=== PATIENT | female | born 2000 | race Caucasian/White ===

== ENCOUNTER 2018-01-04 11:00 | Emergency (ER) | payer SELFPAY ==
[2018-01-04] MEDS ORDERED: Cyclobenzaprine TAB* 10 MG PO ONE (11:02)
[2018-01-04] MEDS ORDERED: Ibuprofen TAB* 600 MG PO ONE (11:02)
[2018-01-04 11:40] VITALS: BP 132/82
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
== END 2018-01-04 11:39 | disposition home or self-care (01) ==
LOC: ED 11:00
DX: S19.9XXA Unspecified injury of neck, initial encounter (principal); S39.92XA Unspecified injury of lower back, initial encounter; S00.83XA Contusion of other part of head, initial encounter; S00.81XA Abrasion of other part of head, initial encounter; V48.6XXA Car passenger injured in noncollision transport accident in traffic accident, initial encounter; Y93.89 Activity, other specified; Y92.410 Unspecified street and highway as the place of occurrence of the external cause
CPT/HCPCS: 99282; A9270-GY

== ENCOUNTER 2018-01-27 14:39 | Emergency (ER) | payer OTHER ==
[2018-01-27 15:00] VITALS: BP 109/71
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
== END 2018-01-27 15:51 | disposition home or self-care (01) ==
LOC: UCEAST 14:39
DX: S93.402A Sprain of unspecified ligament of left ankle, initial encounter (principal); V49.3XXA Car occupant (driver) (passenger) injured in unspecified nontraffic accident, initial encounter; Y93.89 Activity, other specified; Y92.9 Unspecified place or not applicable; M25.562 Pain in left knee; M25.561 Pain in right knee; M54.5 Low back pain; Z88.8 Allergy status to other drugs, medicaments and biological substances
CPT/HCPCS: 99211; G0463

== ENCOUNTER 2018-09-07 15:20 | Emergency (ER) | payer SELFPAY ==
[2018-09-07 15:31] VITALS: BP 117/68
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
== END 2018-09-07 17:45 | disposition home or self-care (01) ==
LOC: UCEAST 15:20
DX: M54.6 Pain in thoracic spine (principal); M25.552 Pain in left hip; S29.012S Strain of muscle and tendon of back wall of thorax, sequela; V89.2XXS Person injured in unspecified motor-vehicle accident, traffic, sequela
CPT/HCPCS: 72080; 81003; 84702; 99212; G0463

== ENCOUNTER 2018-09-28 18:19 | Emergency (ER) | payer SELFPAY ==
[2018-09-28 18:28] VITALS: BP 112/67
--- NOTE | 2018-09-28 18:58 | UC ---
Ear Complaint HPI - HPI Summary HPI Summary: 17-year-old female here with a chief complaint of bilateral ear pain. Started several days ago. She has had some upper respiratory tract infection symptoms. She had her mother report getting recurrent ear infections. Some rhinorrhea mild sore throat no cough or chest congestion. No fevers. Has not been swimming recently. - History of Current Complaint Chief Complaint: UCGeneralIllness Stated Complaint: EAR PAIN Time Seen by Provider: 09/28/18 18:40 Hx Last Menstrual Period: 09/14/18 Pain Intensity: 3 - Allergies/Home Medications Allergies/Adverse Reactions: Allergies Allergy/AdvReac Type Severity Reaction Status Date / Time prednisolone Allergy Hives Verified 09/28/18 18:28 PMH/Surg Hx/FS Hx/Imm Hx Previously Healthy: Yes - Surgical History Surgical History: Yes Surgery Procedure, Year, and Place: laser surgery on right foot. - Family History Known Family History: Positive: Cardiac Disease, Hypertension Negative: Diabetes - Social History Alcohol Use: None Substance Use Type: None Smoking Status (MU): Never Smoked Tobacco - Immunization History Vaccination Up to Date: Yes Review of Systems All Other Systems Reviewed And Are Negative: Yes Constitutional: Positive: Negative Skin: Positive: Negative Eyes: Positive: Negative ENT: Positive: Sore Throat, Ear Ache, Nasal Discharge, Sinus Congestion Respiratory: Positive: Negative Cardiovascular: Positive: Negative Gastrointestinal: Positive: Negative Motor: Positive: Negative Neurovascular: Positive: Negative Musculoskeletal: Positive: Negative Neurological: Positive: Negative Psychological: Positive: Negative Is Patient Immunocompromised?: No Physical Exam Triage Information Reviewed: Yes Appearance: No Pain Distress, Well-Nourished, Ill-Appearing - mild Vital Signs: Initial Vital Signs Temp 97.9 F 09/28/18 18:24 Pulse 78 09/28/18 18:24 Resp 16 09/28/18 18:24 BP 112/67 09/28/18 18:24 Pulse Ox 100 09/28/18 18:24 Vital Signs Reviewed: Yes Eye Exam: Normal Eyes: Positive: Conjunctiva Clear ENT: Positive: Pharyngeal erythema, Nasal congestion, Nasal drainage, TM dull - b/l, TM red - b/l, Uvula midline Neck exam: Normal Neck: Positive: Supple Respiratory: Positive: Lungs clear, Normal breath sounds, No respiratory distress Cardiovascular: Positive: RRR Musculoskeletal Exam: Normal Musculoskeletal: Positive: Strength Intact, ROM Intact Neurological Exam: Normal Neurological: Positive: Alert, Muscle Tone Normal Psychological Exam: Normal Psychological: Positive: Normal Response To Family, Age Appropriate Behavior Skin Exam: Normal Ear Complaint Course/Dx - Course Course Of Treatment: DISCUSSED VIRAL VERSES BACTERIAL INFECTION AND THE ROLE OF ANTIBIOTICS. THE PATIENT WISHES TO BE ON ANTIBIOTIC AT THIS TIME. - Differential Dx/Diagnosis Provider Diagnosis: Acute serous otitis media of both ears Discharge - Sign-Out/Discharge Documenting (check all that apply): Patient Departure All imaging exams completed and their final reports reviewed: No Studies - Discharge Plan Condition: Stable Disposition: HOME Prescriptions: Amoxicillin PO (*) [Amoxicillin 875 MG (*)] 875 mg PO BID #20 tab Patient Education Materials: Serous Otitis Media (ED) Referrals: Javier FOXPMarion [Primary Care Provider] - Additional Instructions: FOLLOW UP WITH YOUR DOCTOR IF NOT COMPLETELY IMPROVED. GET RECHECKED FOR ANY WORSENING OF YOUR CONDITION OR QUESTIONS OR CONCERNS. - Billing Disposition and Condition Condition: STABLE Disposition: Home
== END 2018-09-28 19:05 | disposition home or self-care (01) ==
LOC: UCEAST 18:19
DX: H65.03 Acute serous otitis media, bilateral (principal); Z88.8 Allergy status to other drugs, medicaments and biological substances
CPT/HCPCS: 99212; G0463

== ENCOUNTER 2018-11-08 10:39 | Emergency (ER) | payer OTHER ==
--- OUTSIDE RECORDS SUMMARY | 2018-11-08 10:44 | XMS REPORT | Continuity of Care Document ---
:2000 External Reference #:[id number] Author Name Nelia Parson Care Team Providers Name Role Phone Mikki Cruz NP Primary Care Physician Unavailable Payers Type Date Identification Numbers Payment Provider Subscriber Policy Number: [id number] [facility] Alejandra You PayID: [id number] [address] [place] [address] Policy Number: [id number] Medicaid [place] Alejandra You PayID: [id number] [address] [place] [address] Advance Directives Description No Information Available Problems Description No Information Family History Date Family Member(s) Problem(s) Comments Mother Scoliosis Mother brain surgery Maternal Grandmother Breast Cancer Maternal Grandmother ID Maternal Grandmother Stroke Social History Type Date Description Comments Sex Unknown Education Highest level completed, 12th grade Marital Status Single Lives With Mother Tobacco Use Start: Unknown Never Smoked Cigarettes Smoking Status Reviewed: 10/31/18 Never Smoked Cigarettes ETOH Use Denies alcohol use Recreational Drug Use Denies Drug Use Exercise Type/Frequency Does not exercise Seat Belt/Car Seat Always uses seat belt Currently Active Patient is currently not sexually active Contraceptive Methods None STD's No STD History Allergies, Adverse Reactions, Alerts Date Description Reaction Status Severity Comments 10/31/2018 Prednisone Active Medications Description No Information Immunizations Description No Information Available Vital Signs Date Vital Result Comment 10/31/2018 10:11am BP Systolic 120 mmHg BP Diastolic 80 mmHg Height 62 inches 5'2" Weight 109.00 lb BMI (Body Mass Index) 19.9 kg/m2 Last Menstrual Period [id number] Parity 0 Results Description No Information Available Procedures Description No Information Available Encounters Description No Information Available Plan of Treatment No Information Available
--- NOTE | 2018-11-08 12:41 | UC ---
Throat Pain/Nasal Thad HPI - HPI Summary HPI Summary: 17 yo female presents with cough, sore throat, and b/l ear pain for the last 2 days. She has not taken anything OTC for her symptoms. Denies fever, chills, SOB , chest pain. - History of Current Complaint Chief Complaint: UCGeneralIllness Stated Complaint: SORE THROAT, EAR COMPLAINT Time Seen by Provider: 11/08/18 12:41 Hx Obtained From: Patient Hx Last Menstrual Period: 11/07/18 Onset/Duration: Gradual Onset Severity: Mild Pain Intensity: 3 Pain Scale Used: 0-10 Numeric Cough: Nonproductive - Allergies/Home Medications Allergies/Adverse Reactions: Allergies Allergy/AdvReac Type Severity Reaction Status Date / Time prednisolone Allergy Hives Verified 11/08/18 10:53 Home Medications: Home Medications NK [No Home Medications Reported] 11/08/18 [History Confirmed 11/08/18] PMH/Surg Hx/FS Hx/Imm Hx - Additional Past Medical History Additional PMH: NONE - Surgical History Surgical History: Yes Surgery Procedure, Year, and Place: laser surgery on right foot. - Family History Known Family History: Positive: Cardiac Disease, Hypertension Negative: Diabetes - Social History Occupation: Student Lives: Dormitory/Roommates Alcohol Use: None Substance Use Type: None Smoking Status (MU): Never Smoked Tobacco - Immunization History Vaccination Up to Date: Yes Review of Systems All Other Systems Reviewed And Are Negative: Yes Constitutional: Positive: Negative Skin: Positive: Negative Eyes: Positive: Negative ENT: Positive: Sore Throat, Nasal Discharge Respiratory: Positive: Cough Cardiovascular: Positive: Negative Gastrointestinal: Positive: Negative Neurovascular: Positive: Negative Neurological: Positive: Negative Psychological: Positive: Negative Physical Exam - Summary Physical Exam Summary: GENERAL: NAD. WDWN. No pain distress. SKIN: No rashes, sores, lesions, or open wounds. HEENT: Head: AT/NC Eyes: EOM intact. Conjunctiva clear without inflammation or discharge. Ears: Hearing grossly normal. TMs intact, no bulging, erythema, or edema. Nose: Nasal mucosa pink and moist. NTTP maxillary and frontal sinus. Throat: Posterior oropharynx without exudates, erythema, or tonsillar enlargement. Uvula midline. NECK: Supple. Nontender. No lymphadenopathy. CHEST: CTAB. No r/r/w. No accessory muscle use. Breathing comfortably and in no distress. CV: RRR. Without m/r/g. Pulses intact. Cap refill <2seconds NEURO: Alert. PSYCH: Age appropriate behavior. Triage Information Reviewed: Yes Vital Signs: Initial Vital Signs Temp 99 F 11/08/18 10:50 Pulse 64 11/08/18 10:50 Resp 16 11/08/18 10:50 BP 101/63 11/08/18 10:50 Pulse Ox 100 11/08/18 10:50 Laboratory Tests 11/08/18 12:50 Group A Strep Rapid Negative Vital Signs Reviewed: Yes Throat Pain/Nasal Course/Dx - Course Course Of Treatment: POC strep negative. She is well appearing, afebrile, and exam WNL. Suspect viral illness. Advised to try OTC tylenol/ibuprofen and mucinex - f/u with PCP if symptoms do not improve. - Differential Dx/Diagnosis Provider Diagnosis: Viral syndrome Discharge - Sign-Out/Discharge Documenting (check all that apply): Patient Departure All imaging exams completed and their final reports reviewed: No Studies - Discharge Plan Condition: Stable Disposition: HOME Patient Education Materials: Pharyngitis (ED), Viral Syndrome (ED) Referrals: Javier PR[facility]UC[facility] RES[facility] COORDINATORMarion [Primary Care Provider] - Additional Instructions: If you develop a fever, shortness of breath, chest pain, new or worsening symptoms - please call your PCP or go to the ED. - Billing Disposition and Condition Condition: STABLE Disposition: Home
[2018-11-08 13:14] VITALS: BP 109/65
== END 2018-11-08 13:10 | disposition home or self-care (01) ==
LOC: UCEAST 10:39
DX: B34.9 Viral infection, unspecified (principal); Z88.8 Allergy status to other drugs, medicaments and biological substances
CPT/HCPCS: 87651; 99211; G0463

== ENCOUNTER 2019-02-14 19:35 | Emergency (ER) | payer OTHER ==
--- NOTE | 2019-02-14 19:38 | UC ---
Respiratory Complaint HPI - HPI Summary HPI Summary: 18 yo female presents with dry cough that began this morning. She tells me that she has a history of asthma, but has not needed her inhaler for a few years and is unsure where it is. She has not been taking anything OTC for her symptoms. She is feeling well otherwise and denies fever, chills, sinus symptoms, SOB, chest pain, rash. She does not smoke. - History of Current Complaint Stated Complaint: COUGH Time Seen by Provider: 02/14/19 19:38 Hx Obtained From: Patient Hx Last Menstrual Period: 11/07/18 Onset/Duration: Sudden Onset Timing: Constant Character: Cough: Nonproductive - Allergies/Home Medications Allergies/Adverse Reactions: Allergies Allergy/AdvReac Type Severity Reaction Status Date / Time prednisolone Allergy Hives Verified 02/14/19 19:38 PMH/Surg Hx/FS Hx/Imm Hx Respiratory History: Asthma - Surgical History Surgical History: Yes Surgery Procedure, Year, and Place: laser surgery on right foot. - Family History Known Family History: Positive: Cardiac Disease, Hypertension Negative: Diabetes - Social History Lives: With Family Alcohol Use: None Substance Use Type: None Smoking Status (MU): Never Smoked Tobacco - Immunization History Vaccination Up to Date: Yes Review of Systems All Other Systems Reviewed And Are Negative: Yes Constitutional: Positive: Negative Skin: Positive: Negative Eyes: Positive: Negative ENT: Positive: Negative Respiratory: Positive: Cough Cardiovascular: Positive: Negative Gastrointestinal: Positive: Negative Neurovascular: Positive: Negative Neurological: Positive: Negative Psychological: Positive: Negative Physical Exam - Summary Physical Exam Summary: GENERAL: NAD. WDWN. No pain distress. SKIN: No rashes, sores, lesions, or open wounds. HEENT: Head: AT/NC Eyes: EOM intact. Conjunctiva clear without inflammation or discharge. Ears: Hearing grossly normal. TMs intact, no bulging, erythema, or edema. Nose: Nasal mucosa pink and moist. NTTP maxillary and frontal sinus. Throat: Posterior oropharynx without exudates, erythema, or tonsillar enlargement. Uvula midline. NECK: Supple. Nontender. No lymphadenopathy. CHEST: CTAB. No r/r/w. No accessory muscle use. Breathing comfortably and in no distress. CV: RRR. Without m/r/g. Pulses intact. Cap refill <2seconds NEURO: Alert. PSYCH: Age appropriate behavior. Triage Information Reviewed: Yes Vital Signs: Vital Signs: Temp Pulse Resp BP Pulse Ox 98.3 F 82 20 117/75 98 02/14/19 19:39 02/14/19 19:39 02/14/19 19:39 02/14/19 19:39 02/14/19 19:39 Vital Signs Reviewed: Yes Respiratory Course/Dx - Course Course Of Treatment: Afebrile and exam WNL. Coughing throughout exam. Suspect viral cough and will treat her with tessalon, cough syrup, and albuterol inhaler. Advised to f/u if symptoms worsen or do not improve. - Differential Dx/Diagnosis Provider Diagnosis: Cough Discharge - Sign-Out/Discharge Documenting (check all that apply): Patient Departure All imaging exams completed and their final reports reviewed: No Studies - Discharge Plan Condition: Stable Disposition: HOME Prescriptions: Benzonatate CAP* [Tessalon 100 MG CAP*] 100 mg PO TID PRN #21 cap PRN Reason: Cough Codeine Phosphate/Guaifenesin [Guaifen-Codeine 100-10 mg/5 ml] 5 ml PO BEDTIME PRN #35 ml MDD 5mL PRN Reason: Cough Patient Education Materials: Acute Cough (ED) Referrals: Mikki Cruz [Primary Care Provider] - Additional Instructions: If you develop a fever, shortness of breath, chest pain, new or worsening symptoms - please call your PCP or go to the ED immediately. - Billing Disposition and Condition Condition: STABLE Disposition: Home
[2019-02-14 19:43] VITALS: BP 117/75
[2019-02-14] MEDS ORDERED: Benzonatate CAP* 100 MG PO ONE (19:44)
[2019-02-14] MEDS ORDERED: Albuterol HFA INHALER* 8 gm MDI INH ONE (19:48)
== END 2019-02-14 20:06 | disposition home or self-care (01) ==
LOC: UCEAST 19:35
DX: R05 Cough (principal); Z88.8 Allergy status to other drugs, medicaments and biological substances
CPT/HCPCS: 99212; A9270-GY; G0463

== ENCOUNTER 2019-02-16 09:20 | Emergency (ER) | payer OTHER ==
[2019-02-16 09:39] VITALS: BP 118/61
[2019-02-16] MEDS ORDERED: Albuterol/Ipratropium NEB.SOL* Albuterol 2.5 MG/Ipratropium 0.5 MG 3 ML INH ONE (09:41)
[2019-02-16] MEDS ORDERED: diPHENhydraMINE PO* 25 MG PO ONE (09:42)
--- NOTE | 2019-02-16 09:47 | UC ---
Respiratory Complaint HPI - HPI Summary HPI Summary: Patient was seen wo days ago for a productive cough, given tessleon pearls and codeine syrup for bedtime. she took the codeine syrup last night and began to vomit and get a hive like rash on her face and chest. her cough is nw worse and she is wheezing, throat if very red and sore. - History of Current Complaint Chief Complaint: UCGeneralIllness Stated Complaint: FLU LOIKE SYMPTOMS Time Seen by Provider: 02/16/19 09:29 Hx Obtained From: Patient Hx Last Menstrual Period: beginning of December ?: No Onset/Duration: Sudden Onset, Lasting Weeks Timing: Constant Severity Initially: Mild Severity Currently: Moderate Pain Intensity: 0 Character: Cough: Productive Associated Signs And Symptoms: Positive: Dyspnea, Wheezing - Allergies/Home Medications Allergies/Adverse Reactions: Allergies Allergy/AdvReac Type Severity Reaction Status Date / Time codeine Allergy Nausea And Verified 02/16/19 09:44 Vomiting prednisolone Allergy Hives Verified 02/16/19 09:45 PMH/Surg Hx/FS Hx/Imm Hx Previously Healthy: Yes - Surgical History Surgical History: Yes Surgery Procedure, Year, and Place: laser surgery on right foot. - Family History Known Family History: Positive: Cardiac Disease, Hypertension Negative: Diabetes - Social History Alcohol Use: None Substance Use Type: None Smoking Status (MU): Never Smoked Tobacco - Immunization History Vaccination Up to Date: Yes Review of Systems All Other Systems Reviewed And Are Negative: Yes Constitutional: Positive: Fatigue Skin: Positive: Rash ENT: Positive: Sore Throat Respiratory: Positive: Shortness Of Breath, Cough Neurological: Positive: Headache Is Patient Immunocompromised?: No Physical Exam Triage Information Reviewed: Yes Appearance: Well-Nourished, Ill-Appearing, Pain Distress Vital Signs: Initial Vital Signs Temp 99.9 F 02/16/19 09:33 Pulse 77 02/16/19 09:33 Resp 18 02/16/19 09:33 BP 118/61 02/16/19 09:33 Pulse Ox 100 02/16/19 09:33 Vital Signs Reviewed: Yes Eye Exam: Normal ENT: Positive: Pharyngeal erythema, TM bulging, Tonsillar swelling Dental Exam: Normal Neck exam: Normal Respiratory: Positive: No respiratory distress, No accessory muscle use, Wheezing, Inspiration Cardiovascular Exam: Normal Cardiovascular: Positive: RRR, No Murmur, Pulses Normal Abdominal Exam: Normal Abdomen Description: Positive: Nontender, No Organomegaly, Soft Musculoskeletal Exam: Normal Neurological Exam: Normal Psychological Exam: Normal Skin Exam: Normal Skin: Positive: Rashes - hives on face and chest Respiratory Course/Dx - Course Course Of Treatment: hx obtained, exam performed ,meds reviewed, rapid strep obtained, duo neb given and benadryl given for hives. - Differential Dx/Diagnosis Differential Diagnosis/HQI/PQRI: Asthma, Bronchitis, Influenza, Sinusitis Provider Diagnosis: Bronchitis, Asthma Discharge - Sign-Out/Discharge Documenting (check all that apply): Patient Departure All imaging exams completed and their final reports reviewed: No Studies - Discharge Plan Condition: Stable Disposition: HOME Prescriptions: Albuterol HFA INHALER* [Ventolin HFA Inhaler*] 2 puff INH Q4H PRN #1 mdi PRN Reason: Cough Cetirizine* [ZyrTEC 10 MG TAB*] 10 mg PO DAILY #30 tab Patient Education Materials: Acute Bronchitis (ED), General Allergic Reaction ( ED) Forms: *Work Release Referrals: Mikki Cruz [Primary Care Provider] - Additional Instructions: 1. start a daily zyrtec for the reaction to the codeine 2. Use the prescribed medications for the cough and wheezing 3. Follow up if not improving. - Billing Disposition and Condition Condition: STABLE Disposition: Home - Attestation Statements Provider Attestation: I did not see or exam this patient. I was available for consult.
== END 2019-02-16 10:40 | disposition home or self-care (01) ==
LOC: UCEAST 09:20
DX: J45.909 Unspecified asthma, uncomplicated (principal); R21 Rash and other nonspecific skin eruption; J02.9 Acute pharyngitis, unspecified; Z88.5 Allergy status to narcotic agent; Z88.8 Allergy status to other drugs, medicaments and biological substances
CPT/HCPCS: 87651; 99212; A9270-GY; G0463